=== PATIENT | male | born 1985 ===

== ENCOUNTER 2020-09-22 21:30 | Emergency (ER) | payer SELFPAY ==
[2020-09-22] MEDS ORDERED: Ondansetron 4 MG/2 ML SDV IVPUSH ONE (22:05)
[2020-09-22] MEDS: Sodium Chloride 0.9% 1,000 ML IV SCH ×2 (22:10→23:23)
[2020-09-22 22:46] LABS: CHLORIDE,CL 100 mmol/L (98-107); SODIUM,NA 137 mmol/L (136-145)
[2020-09-22 22:47] LABS: ANION GAP 11.2 mmol/L (5-15)
[2020-09-22] MEDS ORDERED: Ketorolac 15 MG/ML SDV IVPUSH ONE (22:58)
[2020-09-22] MEDS ORDERED: Acetaminophen 500 MG Tab PO ONE (22:58)
--- NOTE | 2020-09-22 23:17 | EDM.PDOC ---
ED HPI GENERAL MEDICAL PROBLEM - General Chief Complaint: Gastrointestinal Problem Stated Complaint: NAUSEA, VOMITING PNEUMONIA Time Seen by Provider: 09/22/20 23:14 Source of Information: Reports: Patient History Limitations: Reports: No Limitations - History of Present Illness INITIAL COMMENTS - FREE TEXT/NARRATIVE: Pt. presents to ER with complaints of nausea, diffuse abdominal cramping and vomiting. He states that he has been experiencing this for the past 2 days. 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 He stopped at a truck stop and called 911. Pt. states that he has not been able to eat or hold down much water. Pt. was diagnosed with covid 19 on 09/17/2020 at [facility] in [place], [place]. At that time, he was diagnosed with covid pneumonia, dehydration and hypokalemia secondary to nausea/vomiting. He was treated with IV fluids, zofran, antiinflammatories, and was started on potassium. He did not meet criteria for admission or for Bamlanivimab-Etesevimab. He was not requiring any oxygen. Chest x-ray was consistent with viral pneumonia. He states that he felt better for a few days, but states that the symptoms eventually got worse again. Pt. denies any chest pain, shortness of breath, or bloody stools. He was not started on any oral antiemetics at time of discharge. Pt. is from [facility]. He speaks some language, but his first language was [place]. Overall, we were able to communicate with the patient. He denies any pertinent past medical history. He is not a smoker. No history or diabetes, Sickle Cell, obesity, asthma, COPD, CAD, CKD, hypertension, immunosuppression, or other comorbidities. Onset Date: 09/21/20 Location: Reports: Generalized - Related Data Allergies Allergy/AdvReac Type Severity Reaction Status Date / Time No Known Allergies Allergy Verified 09/22/20 22:21 Home Meds: Home Meds . [Unable to Verify Home Med List] 09/22/20 [History] ED ROS GENERAL - Review of Systems Review Of Systems: See Below Constitutional: Reports: No Symptoms HEENT: Reports: No Symptoms Respiratory: Denies: Shortness of Breath, Wheezing, Pleuritic Chest Pain, Cough, Sputum, Hemoptysis Cardiovascular: Reports: No Symptoms Endocrine: Reports: No Symptoms GI/Abdominal: Reports: Nausea, Vomiting. Denies: Black Stool, Bloody Stool, Constipation, Hematemesis, Hematochezia : Reports: No Symptoms Musculoskeletal: Reports: No Symptoms Skin: Reports: No Symptoms Neurological: Reports: No Symptoms Psychiatric: Reports: No Symptoms Hematologic/Lymphatic: Reports: No Symptoms Immunologic: Reports: No Symptoms ED EXAM, GENERAL - Physical Exam Exam: See Below Exam Limited By: No Limitations General Appearance: Alert, WD/WN, No Apparent Distress Nose: Normal Inspection, Normal Mucosa, No Blood Throat/Mouth: Normal Inspection, Normal Lips, Normal Teeth, Normal Gums, Normal Oropharynx, Normal Voice, No Airway Compromise Head: Atraumatic, Normocephalic Neck: Normal Inspection, Supple, Non-Tender, Full Range of Motion Respiratory/Chest: No Respiratory Distress, Lungs Clear, Normal Breath Sounds, No Accessory Muscle Use, Chest Non-Tender Cardiovascular: Normal Peripheral Pulses, Regular Rate, Rhythm, No Edema, No JVD, No Murmur Peripheral Pulses: 4+: Radial (L) GI/Abdominal: Soft, Non-Tender, No Distention, No Mass (Male) Exam: Deferred Rectal (Males) Exam: Deferred Back Exam: Normal Inspection, Full Range of Motion Extremities: Normal Inspection, Normal Range of Motion, Non-Tender, No Pedal Edema, Normal Capillary Refill Neurological: Alert, Oriented, CN II-XII Intact, Normal Cognition, Normal Gait, Normal Reflexes, No Motor/Sensory Deficits Psychiatric: Normal Affect, Normal Mood Skin Exam: Warm, Dry, Intact, Normal Color, No Rash Lymphatic: No Adenopathy Course - Vital Signs Last Recorded V/S: Last Vital Signs Temp 38.4 C H 09/22/20 23:14 Pulse Resp BP Pulse Ox - Orders/Labs/Meds Orders: Active Orders 24 hr Category Date Time Status Abdomen Series w Chest 1V [CR] Stat Exams 09/22/20 22:07 Taken CULTURE BLOOD [BC] Stat Lab 09/22/20 22:30 Received CULTURE BLOOD [BC] Stat Lab 09/22/20 22:35 Received Sodium Chloride 0.9% [Normal Saline] 1,000 ml Med 09/22/20 22:15 Active IV ASDIRECTED Blood Culture x2 Reflex Set [OM.PC] Stat Oth 09/22/20 22:08 Ordered Medication Orders Sodium Chloride (Normal Saline) 1,000 mls @ 1,000 mls/hr IV ASDIRECTED REYES Last Admin: 09/22/20 23:23 Dose: 1,000 mls/hr Documented by: Infusion: 09/22/20 23:10 Dose: 1,000 mls/hr Documented by: Admin: 09/22/20 22:10 Dose: 1,000 mls/hr Documented by: KIMMIE Labs: Laboratory Tests 09/22/20 09/22/20 09/22/20 Range/Units 21:48 21:55 21:55 WBC 3.6 L (4.0-10.0) x10^3/uL RBC 5.23 (4.5-6.0) x10^6/uL Hgb 15.3 (14.0-18.0) g/dL Hct 42.9 (40.0-52.0) % MCV 82.0 (78.0-93.0) fL MCH 29.3 (26.0-32.0) pg MCHC 35.7 (32.0-36.0) g/dL RDW Coeff of Hira 11.6 (10.0-15.0) % Plt Count 233 (130-400) x10^3/uL Neut % (Auto) 77.0 (50.0-80.0) % Lymph % (Auto) 14.4 L (25.0-50.0) % Sunflower % (Auto) 8.0 (2.0-11.0) % Eos % (Auto) 0.3 (0.0-4.0) % Baso % (Auto) 0.3 (0.2-1.2) % PT 10.1 (9.9-12.5) SEC INR 0.9 L (2.0-3.5) APTT (25.6-32.8) SEC Sodium (136-145) mmol/L Potassium (3.5-5.1) mmol/L Chloride (98-107) mmol/L Carbon Dioxide (21-32) mmol/L Anion Gap (5-15) mmol/L BUN (7-18) mg/dL Creatinine (0.70-1.30) mg/dL Est Cr Clr Drug Dosing Estimated GFR (MDRD) Glucose (74-106) mg/dL Lactic Acid (0.4-2.0) mmol/L Calcium (8.5-10.1) mg/dL Corrected Calcium (8.5-10.1) mg/dL Magnesium (1.8-2.4) mg/dL Total Bilirubin (0.2-1.0) mg/dL AST (15-37) U/L ALT (16-63) U/L Alkaline Phosphatase (46-116) U/L Lactate Dehydrogenase (85-227) U/L C-Reactive Protein (<=0.9) mg/dL Total Protein (6.4-8.2) g/dL Albumin (3.4-5.0) g/dL Globulin Albumin/Globulin Ratio SARS CoV-2 RNA Rapid BREN Positive H (NEGATIVE) 09/22/20 09/22/20 09/22/20 Range/Units 21:55 21:55 21:55 WBC (4.0-10.0) x10^3/uL RBC (4.5-6.0) x10^6/uL Hgb (14.0-18.0) g/dL Hct (40.0-52.0) % MCV (78.0-93.0) fL MCH (26.0-32.0) pg MCHC (32.0-36.0) g/dL RDW Coeff of Hira (10.0-15.0) % Plt Count (130-400) x10^3/uL Neut % (Auto) (50.0-80.0) % Lymph % (Auto) (25.0-50.0) % Sunflower % (Auto) (2.0-11.0) % Eos % (Auto) (0.0-4.0) % Baso % (Auto) (0.2-1.2) % PT (9.9-12.5) SEC INR (2.0-3.5) APTT 28.0 (25.6-32.8) SEC Sodium 137 (136-145) mmol/L Potassium 3.2 L (3.5-5.1) mmol/L Chloride 100 (98-107) mmol/L Carbon Dioxide 29 (21-32) mmol/L Anion Gap 11.2 (5-15) mmol/L BUN 12 (7-18) mg/dL Creatinine 1.0 (0.70-1.30) mg/dL Est Cr Clr Drug Dosing TNP Estimated GFR (MDRD) > 60 Glucose 105 (74-106) mg/dL Lactic Acid 1.3 (0.4-2.0) mmol/L Calcium 8.0 L (8.5-10.1) mg/dL Corrected Calcium 8.88 (8.5-10.1) mg/dL Magnesium 2.0 (1.8-2.4) mg/dL Total Bilirubin 0.6 (0.2-1.0) mg/dL AST 44 H (15-37) U/L ALT 32 (16-63) U/L Alkaline Phosphatase 43 L (46-116) U/L Lactate Dehydrogenase 490 H (85-227) U/L C-Reactive Protein 2.8 H (<=0.9) mg/dL Total Protein 7.4 (6.4-8.2) g/dL Albumin 2.9 L (3.4-5.0) g/dL Globulin 4.5 Albumin/Globulin Ratio 0.64 SARS CoV-2 RNA Rapid BREN (NEGATIVE) Meds: Medications Generic Name Dose Route Start Last Admin Trade Name Freq PRN Reason Stop Dose Admin Sodium Chloride 1,000 mls @ 1,000 mls/hr 09/22/20 22:15 09/22/20 23:23 Normal Saline IV 1,000 mls/hr ASDIRECTED REYES Administration Discontinued Medications Generic Name Dose Route Start Last Admin Trade Name Freq PRN Reason Stop Dose Admin Acetaminophen 1,000 mg 09/22/20 22:58 09/22/20 23:14 Acetaminophen 500 Mg Tab PO 09/22/20 22:59 1,000 mg ONETIME ONE Administration Ketorolac Tromethamine 15 mg 09/22/20 22:58 09/22/20 23:13 Ketorolac 15 Mg/Ml Sdv IVPUSH 09/22/20 22:59 15 mg ONETIME ONE Administration Ondansetron HCl 4 mg 09/22/20 22:05 09/22/20 22:10 Ondansetron 4 Mg/2 Ml Sdv IVPUSH 09/22/20 22:06 4 mg ONETIME ONE Administration Ondansetron HCl 1 packet 09/23/20 00:38 09/23/20 00:45 Take Home: Ondansetron 4 Mg Tab.Dis, 2 Tab Pack PO 09/23/20 00:39 1 packet ONETIME ONE Administration - Radiology Interpretation Free Text/Narrative:: Atypical pneumonia noted on chest x-ray Upright abdomen did not reveal any acute bowel obstruction. Departure - Departure Time of Disposition: 00:54 Disposition: Home, Self-Care 01 Condition: Good Clinical Impression: Pneumonia due to COVID-19 virus, Nausea and vomiting - Discharge Information Instructions: COVID-19, Prevent the Spread of COVID-19 if You Are Sick - [facility] Referrals: PCP,Unknown [Primary Care Provider] - Forms: ED Department Discharge Additional Instructions: Avoid contact with other people. Wear a mask. Recheck with your regular healthcare provider in 10-14 days. Drink plenty of fluids. Zofran ODT 4mg 1 tablet every 6 hours as needed for nausea/vomiting. Acetaminophen 650mg 1 every 4-6 hours as needed for fever/discomfort. Sepsis Event Note (ED) - Focused Exam Vital Signs: Vital Signs Temp 09/22/20 23:14 38.4 C H - My Orders Last 24 Hours: My Active Orders 09/22/20 22:07 Abdomen Series w Chest 1V [CR] Stat 09/22/20 22:08 Blood Culture x2 Reflex Set [OM.PC] Stat 09/22/20 22:15 Sodium Chloride 0.9% [Normal Saline] 1,000 ml IV ASDIRECTED 09/22/20 22:30 CULTURE BLOOD [BC] Stat 09/22/20 22:35 CULTURE BLOOD [BC] Stat - Assessment/Plan Last 24 Hours: My Active Orders 09/22/20 22:07 Abdomen Series w Chest 1V [CR] Stat 09/22/20 22:08 Blood Culture x2 Reflex Set [OM.PC] Stat 09/22/20 22:15 Sodium Chloride 0.9% [Normal Saline] 1,000 ml IV ASDIRECTED 09/22/20 22:30 CULTURE BLOOD [BC] Stat 09/22/20 22:35 CULTURE BLOOD [BC] Stat
[2020-09-23] MEDS ORDERED: Take Home: Ondansetron 4 MG Tab.DIS, 2 Tab Pack PO ONE (00:38)
--- NOTE | 2020-09-23 09:05 | CR ---
[id number] RAD/RAD Abdomen 3V EXAM: RAD Abdomen 3V INDICATION: COVID POSITIVE COMPARISON: None. FINDINGS: Moderate patchy bilateral mid and lower lung infiltrates are compatible with history of COVID pneumonia. Low lung volumes. Borderline heart size. Mildly prominent colonic stool volume. No bowel dilation, free air or pneumatosis is detected. IMPRESSION: 1. Moderate patchy bilateral infiltrates consistent with the clinical history of COVID pneumonia. Valente Hinson MD 09/23/20 0903 Thank you for allowing us to participate in the care of your patient.
== END 2020-09-23 00:54 | disposition home or self-care (01) ==
LOC: VM.ED 21:30
DX: U07.1 COVID-19 (principal); J12.82 Pneumonia due to coronavirus disease 2019; R11.2 Nausea with vomiting, unspecified
CPT/HCPCS: 36415; 74022; 80053; 83605; 83615; 83735; 85025; 85610; 85730; 86140; 87040; 96374; 96375; 99284; 99284-25; A9270-GY; J1885; J2405; J7030; U0002